=== PATIENT | female | born 1990 | race American Indian/Alaskan Native ===

== ENCOUNTER 2020-09-30 11:10 | Emergency (ER) | payer OTHER ==
[2020-09-30 11:21] VITALS: BP 140/91
--- NOTE | 2020-09-30 11:42 | XRay Report ---
CHEST 2 VIEWS INDICATION / CLINICAL INFORMATION: shortness of breath cough. COMPARISON: None available. FINDINGS: SUPPORT DEVICES: None. HEART / MEDIASTINUM: No significant abnormality. LUNGS / PLEURA: No significant pulmonary or pleural abnormality. No pneumothorax. ADDITIONAL FINDINGS: No significant additional findings. IMPRESSION: 1. No acute findings. Signer Name: Misha Clayton MD Signed: 09/30/2020 11:38 AM Workstation Name: [id number]
--- NOTE | 2020-09-30 12:04 | Emergency Department Report ---
ED General Adult HPI - General Chief complaint: Upper Respiratory Infection Stated complaint: WEAK/FEVER Time Seen by Provider: 09/30/20 11:58 Source: patient Mode of arrival: Ambulatory Limitations: No Limitations - History of Present Illness Initial comments: 30-year-old -[place] female patient presents with complaints of fatigue, mild cough, congestion, and fever x yesterday. She states her temperature was 101 and resolved without medication. She denies any past medical history or history of asthma. She does admit to being a smoker. She states she had an episode of shortness of breath this morning that has now resolved and denies any leg pain/swelling, history of DVT/PE/cancer, hormone use, recent long travel, or hemoptysis. Patient also denies any loss of taste/smell, abdominal pain, nausea/vomiting/diarrhea, or recent known sick contacts. Severity scale (0 -10): 0 - Related Data Previous Rx's Medication Instructions Recorded Last Taken Type Albuterol Mdi (or & Nicu Only) 2 puff IH QID PRN #8.5 gram 09/30/20 Unknown Rx [ProAir HFA Inhaler] Azithromycin [Zithromax Z-MARLA] 0 mg PO DAILY #6 tab 09/30/20 Unknown Rx Prednisone [predniSONE 10 mg 10 mg PO .TAPER #1 tab.ds.pk 09/30/20 Unknown Rx (6-Day Pack, 21 Tabs)] Allergies Allergy/AdvReac Type Severity Reaction Status Date / Time No Known Allergies Allergy Unverified 09/30/20 11:19 ED Review of Systems ROS: Stated complaint: WEAK/FEVER Other details as noted in HPI Constitutional: fever, malaise. denies: chills, diaphoresis ENT: denies: throat pain Respiratory: cough, shortness of breath Cardiovascular: denies: chest pain, palpitations, edema, syncope Gastrointestinal: denies: abdominal pain, nausea, vomiting, diarrhea Musculoskeletal: denies: back pain Neurological: denies: headache Hematological/Lymphatic: denies: swollen glands ED Past Medical Hx - Past Medical History Previous Medical History?: No - Surgical History Past Surgical History?: Yes Additional Surgical History: surgical IUD removal - Social History Smoking Status: Current Every Day Smoker Substance Use Type: Alcohol - Medications Home Medications: Home Medications Medication Instructions Recorded Confirmed Last Taken Type Albuterol Mdi (or & Nicu Only) 2 puff IH QID PRN #8.5 gram 09/30/20 Unknown Rx [ProAir HFA Inhaler] Azithromycin [Zithromax Z-MARLA] 0 mg PO DAILY #6 tab 09/30/20 Unknown Rx Prednisone [predniSONE 10 mg 10 mg PO .TAPER #1 tab.ds.pk 09/30/20 Unknown Rx (6-Day Pack, 21 Tabs)] ED Physical Exam - General Limitations: No Limitations General appearance: alert, in no apparent distress - Head Head exam: Present: atraumatic, normocephalic - Eye Eye exam: Present: normal appearance. Absent: scleral icterus - ENT ENT exam: Present: normal exam, normal orophraynx - Neck Neck exam: Present: normal inspection, full ROM. Absent: lymphadenopathy - Respiratory Respiratory exam: Present: wheezes, rhonchi. Absent: respiratory distress, rales, stridor, accessory muscle use - Cardiovascular Cardiovascular Exam: Present: regular rate, normal rhythm. Absent: systolic murmur, diastolic murmur, rubs, gallop - GI/Abdominal GI/Abdominal exam: Present: soft - Extremities Exam Extremities exam: Present: normal inspection - Back Exam Back exam: Present: normal inspection - Neurological Exam Neurological exam: Present: alert, oriented X3 - Psychiatric Psychiatric exam: Present: normal affect, normal mood - Skin Skin exam: Present: warm, dry, intact, normal color. Absent: rash, cyanosis, diaphoretic ED Course Vital Signs 09/30/20 11:19 Temperature 98.1 F Pulse Rate 66 Respiratory 18 Rate Blood Pressure 140/91 [Right] O2 Sat by Pulse 99 Oximetry ED Medical Decision Making - Radiology Data Radiology results: report reviewed CHEST 2 VIEWS INDICATION / CLINICAL INFORMATION: shortness of breath cough. COMPARISON: None available. FINDINGS: SUPPORT DEVICES: None. HEART / MEDIASTINUM: No significant abnormality. LUNGS / PLEURA: No significant pulmonary or pleural abnormality. No pneumothorax. ADDITIONAL FINDINGS: No significant additional findings. IMPRESSION: 1. No acute findings. - Medical Decision Making 30-year-old -[place] female patient presents with complaints of fatigue, mild cough, congestion, and fever x yesterday. She states her temperature was 101 and resolved without medication. She denies any past medical history or history of asthma. She does admit to being a smoker. She states she had an episode of shortness of breath this morning that has now resolved and denies any leg pain/swelling, history of DVT/PE/cancer, hormone use, recent long travel, or hemoptysis. Patient also denies any loss of taste/smell, abdominal pain, nausea/vomiting/diarrhea, or recent known sick contacts. Wheezing and rhonchi noted diffusely in the lungs on exam. Chest x-ray is norm al. Vitals are normal. Flu is negative. Will treat for acute bacterial bronchitis given patient is a smoker. Discussed home care and strict return precautions in detail with patient who verbalizes understanding. Patient to follow-up with primary care within 3 days. She is well-appearing and stable for discharge home. Prescriptions for albuterol, prednisone, and Z-Marla given for Critical care attestation.: If time is entered above; I have spent that time in minutes in the direct care of this critically ill patient, excluding procedure time. ED Disposition Clinical Impression: Acute bacterial bronchitis Disposition: - TO HOME OR SELFCARE Is pt being admited?: No Condition: Stable Instructions: Acute Bronchitis, Adult, Acute Bronchitis (ED) Prescriptions: Prednisone [predniSONE 10 mg (6-Day Pack, 21 Tabs)] 10 mg PO .TAPER #1 tab.ds.pk Albuterol Mdi (or & Nicu Only) [ProAir HFA Inhaler] 2 puff IH QID PRN #8.5 gram PRN Reason: Shortness Of Breath Azithromycin [Zithromax Z-MARLA] 0 mg PO DAILY #6 tab Referrals: [facility] [Provider Group] - 3-5 Days
== END 2020-09-30 13:21 | disposition home or self-care (01) ==
LOC: ED 11:10
DX: J20.9 Acute bronchitis, unspecified (principal); B96.89 Other specified bacterial agents as the cause of diseases classified elsewhere; F17.200 Nicotine dependence, unspecified, uncomplicated; Z98.890 Other specified postprocedural states; Z79.2 Long term (current) use of antibiotics; Z79.899 Other long term (current) drug therapy
CPT/HCPCS: 71046; 87400